=== PATIENT | female | born 1955 | race Caucasian/White ===

== ENCOUNTER 2016-12-23 08:58 | Day surgery (SDC) | payer OTHER ==
[~2016-12-23 08:58] MED LIST: PROPOFOL 500 MG/50 ML EMU IV ONE
[2016-12-23 11:25] VITALS: RESP 20; TEMP 97; O2SAT 97
[2016-12-23 11:33] VITALS: BP 135/87; PULSE 61
== END 2016-12-23 11:40 | disposition home or self-care (01) | DRG 392 ==
LOC: SURG 08:58
PROVIDERS: ATTEND Surgery
DX: K52.9 Noninfective gastroenteritis and colitis, unspecified (principal); K57.30 Diverticulosis of large intestine without perforation or abscess without bleeding
CPT/HCPCS: J2704